=== PATIENT | female | born 1965 | race African-American/Black ===

== ENCOUNTER 2018-04-25 11:04 | Emergency (ER) | payer MEDICAID ==
[~2018-04-25] VITALS: Ht 162.6 cm; Wt 98.0 kg
[~2018-04-25 11:04] MED LIST: AMLO2.5T2; ASPI-1158; BENA10TA10
[2018-04-25 13:05] LABS: BASOPHILS % 0.6 % (0.0-2.0); EOSINOPHILS % 1.1 % (0.0-5.0); HEMATOCRIT. 39.1 % (36.0-48.0); HEMOGLOBIN. 12.7 g/dL (12.0-16.0); LYMPHOCYTES % 20.3 % (20.0-50.0); MEAN CORPUSCULAR HEMOGLOBIN 28.1 pg (28.0-32.0); MEAN CORPUSCULAR VOLUME 86.2 fL (81.0-99.0); MEAN PLATELET VOLUME 9.3 fl (7.4-10.4); MONOCYTES % 5.7 % (2.0-8.0); NEUTROPHILS % 72.3 % (40.0-76.0); PLATELET 261 x1000/uL (130-400); RED BLOOD CELL COUNT 4.54 mill/uL (4.2-5.4); RED CELL DISTRIBUTION WIDTH 12.5 % (11.6-14.6)
[2018-04-25 13:08] LABS: CLARITY URINE CLEAR (CLEAR); COLOR URINE YELLOW (YELLOW); KETONES URINE NEGATIVE (NEGATIVE); LEUKOCYTE ESTERASE URINE NEGATIVE (NEGATIVE); NITRITE URINE NEGATIVE (NEGATIVE); OCCULT BLOOD URINE NEGATIVE (NEGATIVE); PH URINE 7.5 (4.5-8.0); PROTEIN URINE NEGATIVE (NEGATIVE); SPECIFIC GRAVITY URINE 1.023 (1.005-1.030); UROBILINOGEN URINE 0.2 E.U./dL (0.2-1.0)
[2018-04-25 13:09] LABS: CHLORIDE 103 mEq/L (98-107)
[2018-04-25 13:10] LABS: PROTHROMBIN TIME 10.4 sec (9.1-11.1)
[2018-04-25] MEDS ORDERED: POTASSIUM CHLORIDE 20MEQ TABLET SR PO NR (13:45)
[2018-04-25] MEDS ORDERED: HYDROCODONE/ACETAMINOPHEN 5/325MG TABLET PO NR (13:45)
[2018-04-25 14:21] VITALS: BP 121/61
== END 2018-04-25 14:23 | disposition home or self-care (01) ==
LOC: ER 12:27
DX: R10.9 Unspecified abdominal pain (principal); K59.00 Constipation, unspecified; I10 Essential (primary) hypertension; Z90.710 Acquired absence of both cervix and uterus
CPT/HCPCS: 36415; 71045; 74176; 81025; 99284

== ENCOUNTER 2021-03-08 16:34 | Inpatient (IN) | payer MEDICAID, OTHER ==
[~2021-03-08] VITALS: Ht 167.6 cm; Wt 85.5 kg
[~2021-03-08 16:34] MED LIST changes: -ASPI-1158; +ASPI-1406; -BENA10TA10; +BENA10TA74
[2021-03-08] MEDS ORDERED: SODIUM CHLORIDE 0.9% 1,000 ML IV ONE (17:15)
[2021-03-08 18:56] LABS: CHLORIDE 105 mEq/L (98-107)
[2021-03-08 18:57] LABS: HEMATOCRIT. 41.2 % (36.0-48.0); HEMOGLOBIN. 13.5 g/dL (12.0-16.0); MEAN CORPUSCULAR HEMOGLOBIN 28.1 pg (28.0-32.0); MEAN CORPUSCULAR VOLUME 85.8 fL (81.0-99.0); MEAN PLATELET VOLUME 9.8 fl (7.4-10.4); PLATELET 224 x1000/uL (130-400); RED BLOOD CELL COUNT 4.81 mill/uL (4.2-5.4); RED CELL DISTRIBUTION WIDTH 12.8 % (11.6-14.6)
[2021-03-08 19:03] LABS: HCG SCREEN NEGATIVE
[2021-03-08] MEDS ORDERED: KETOROLAC 15MG/ML VIAL IV ONE (21:00)
[2021-03-08] MEDS ORDERED: METOCLOPRAMIDE HCL 10MG/2ML VIAL IV ONE (21:00)
[2021-03-08] MEDS ORDERED: KETOROLAC 30MG/ML VIAL IV ONE (21:00)
[2021-03-08] MEDS ORDERED: DIPHENHYDRAMINE 50MG/ML VIAL IV ONE (21:00)
[2021-03-08 21:13] LABS: PLATELET ESTIMATE NORMAL
[2021-03-09] MEDS ORDERED: IOHEXOL-350 100 ML BOTTLE ONE (01:59)
[2021-03-09] MEDS ORDERED: ONDANSETRON HCL 4MG/2ML INJ IV STA (02:38)
[2021-03-09] MEDS ORDERED: MORPHINE SULFATE 4 MG/ML CPJ (NOT FOR IM USE) IV STA (02:38)
[2021-03-09] MEDS ORDERED: CLONIDINE 0.2MG TABLET PO PRN (06:15)
[2021-03-09 08:00] VITALS: BP_SYST 125; BP_SYST 140; BP_DIAS 64; BP_DIAS 68
[2021-03-09] MEDS ORDERED: POTASSIUM CHLORIDE 20MEQ TABLET SR PO SCH (08:00)
[2021-03-09 09:30] VITALS: BP 125/68
[2021-03-09] MEDS: ACETAMINOPHEN 325MG TABLET PO PRN (10:20)
[2021-03-09 10:35] VITALS: BP 125/60
[2021-03-09 12:00] VITALS: BP 140/70
[2021-03-09] MEDS: KETOROLAC 30MG/ML VIAL IV PRN ×2 (12:31→18:36)
[2021-03-09 16:00] VITALS: BP 134/60
[2021-03-09] MEDS: ONDANSETRON HCL 4MG/2ML INJ IV PRN (16:37)
[2021-03-09 20:00] VITALS: BP 153/59
[2021-03-10] VITALS: BP 146/76
[2021-03-10] MEDS: KETOROLAC 30MG/ML VIAL IV PRN ×3 (00:55→20:58)
[2021-03-10] MEDS: ACETAMINOPHEN 325MG TABLET PO PRN ×2 (00:56→13:00)
[2021-03-10 04:00] VITALS: BP 133/73
[2021-03-10 08:00] VITALS: BP 147/84
[2021-03-10 08:48] LABS: CLARITY URINE CLEAR (CLEAR); COLOR URINE YELLOW (YELLOW); KETONES URINE TRACE (NEGATIVE); LEUKOCYTE ESTERASE URINE NEGATIVE (NEGATIVE); NITRITE URINE NEGATIVE (NEGATIVE); OCCULT BLOOD URINE NEGATIVE (NEGATIVE); PROTEIN URINE NEGATIVE (NEGATIVE); SPECIFIC GRAVITY URINE 1.025 (1.005-1.030); UROBILINOGEN URINE 0.2 E.U./dL (0.2-1.0)
[2021-03-10 09:08] LABS: *AMPHETAMINES SCREEN URINE NEGATIVE (NEGATIVE); *BARBITURATES SCREEN URINE NEGATIVE (NEGATIVE); *BENZODIAZEPINES SCREEN URINE NEGATIVE (NEGATIVE)
[2021-03-10 09:09] LABS: *COCAINE SCREEN URINE NEGATIVE (NEGATIVE); CANNABINOID URINE SCREEN PRESUMTIVE POSITIVE (NEGATIVE); METHADONE URINE SCREEN NEGATIVE (NEGATIVE); OPIATES URINE SCREEN PRESUMTIVE POSITIVE (NEGATIVE); PHENCYCLIDINE URINE SCREEN NEGATIVE (NEGATIVE)
[2021-03-10] MEDS: CEFTRIAXONE 1,000 MG in DEXTROSE 5% WATER 50 ML IV SCH (09:48)
[2021-03-10] MEDS ORDERED: HYDR12.54 MT (11:20)
[2021-03-10] MEDS ORDERED: CARV3.1242 MT (11:20)
[2021-03-10 12:00] VITALS: BP 142/67
[2021-03-10] MEDS ORDERED: TRAMADOL 50MG TABLET PO PRN (12:45)
[2021-03-10 16:00] VITALS: BP 136/75
[2021-03-10] MEDS: ONDANSETRON HCL 4MG/2ML INJ IV PRN ×2 (19:14→20:52)
[2021-03-10 20:00] VITALS: BP 151/69
[2021-03-10 20:10] LABS: BASOPHILS % 0.6 % (0.0-2.0); HEMOGLOBIN. 13.4 g/dL (12.0-16.0); LYMPHOCYTES % 18.7 % (20.0-50.0); MEAN CORPUSCULAR HEMOGLOBIN 28.7 pg (28.0-32.0); MEAN CORPUSCULAR VOLUME 85.6 fL (81.0-99.0); MEAN PLATELET VOLUME 10.2 fl (7.4-10.4); MONOCYTES % 14.9 % (2.0-8.0); NEUTROPHILS % 65.8 % (40.0-76.0); PLATELET 174 x1000/uL (130-400); RED BLOOD CELL COUNT 4.68 mill/uL (4.2-5.4); RED CELL DISTRIBUTION WIDTH 12.9 % (11.6-14.6)
[2021-03-10 20:21] LABS: CHLORIDE 110 mEq/L (98-107)
[2021-03-10] MEDS ORDERED: BISACODYL 10MG SUPP PR PRN (21:15)
[2021-03-11 00:05] VITALS: BP 142/71
[2021-03-11 04:00] VITALS: BP 150/93
[2021-03-11 07:49] VITALS: BP 145/87
[2021-03-11] MEDS: CEFTRIAXONE 1,000 MG in DEXTROSE 5% WATER 50 ML IV SCH (08:29)
[2021-03-11] MEDS: KETOROLAC 30MG/ML VIAL IV PRN (08:37)
[2021-03-11 08:43] VITALS: BP 145/87
[2021-03-11] MEDS ORDERED: DOCUSATE SODIUM 100MG CAPSULE PO SCH (09:00)
== END 2021-03-11 10:00 | disposition home or self-care (01) | DRG 720 ==
LOC: ER 16:34 → 7WST 03-09 02:38 → EDBEDREQTM 03-09 02:40 → EDBEDREQDT 03-09 02:40 → EDBEDREQ 03-09 02:40 → ENRESERV 03-09 07:29
PROVIDERS: ADMIT Internal Medicine; ATTEND Internal Medicine
DX: A41.89 Other specified sepsis (principal); U07.1 COVID-19; E66.9 Obesity, unspecified; E87.6 Hypokalemia; F12.90 Cannabis use, unspecified, uncomplicated; I10 Essential (primary) hypertension; Z82.49 Family history of ischemic heart disease and other diseases of the circulatory system; Z83.3 Family history of diabetes mellitus; Z90.49 Acquired absence of other specified parts of digestive tract; Z90.710 Acquired absence of both cervix and uterus
CPT/HCPCS: 36415; 70496; 70498; 71045; 80048; 80053; 80305; 81003; 84484; 84703; 85025; 87426; 93005; 99285; J0696; J1200; J1885; J2270; J2405; J2765; J7030; J7060; Q9967